=== PATIENT | female | born 1955 | race Hispanic/Latino ===

== ENCOUNTER 2022-05-21 18:53 | Emergency (ER) | payer MEDICARE, OTHER ==
[~2022-05-21] VITALS: Ht 154.9 cm; Wt 81.7 kg
[2022-05-21] MEDS ORDERED: NORVASC10 MG PO (19:07)
[2022-05-21] MEDS ORDERED: COZAAR25 MG PO (19:07)
== END 2022-05-21 20:48 | disposition home or self-care (01) ==
LOC: ED 18:53
DX: J21.0 Acute bronchiolitis due to respiratory syncytial virus (principal); Z20.822 Contact with and (suspected) exposure to COVID-19
CPT/HCPCS: 71045; 87502; 94640; 99284-25; C9803; U0003

== ENCOUNTER 2023-03-16 13:02 | Emergency (ER) | payer OTHER, MEDICARE ==
[~2023-03-16] VITALS: Ht 154.9 cm; Wt 81.9 kg
[~2023-03-16 13:02] MED LIST: COZAAR25 MG PO; NORVASC10 MG PO; ZTLIDO1 EACH TOP
[2023-03-16] MEDS ORDERED: HYDROCODON-ACE1 EA10 PO (14:15)
[2023-03-16 15:12] VITALS: BP 165/93
== END 2023-03-16 15:13 | disposition home or self-care (01) ==
LOC: ED 13:02
DX: S61.213A Laceration without foreign body of left middle finger without damage to nail, initial encounter (principal); S61.215A Laceration without foreign body of left ring finger without damage to nail, initial encounter; W23.0XXA Caught, crushed, jammed, or pinched between moving objects, initial encounter; I10 Essential (primary) hypertension; Z79.899 Other long term (current) drug therapy
CPT/HCPCS: 12002; 73130; 99283-25; A9270

== ENCOUNTER 2024-10-06 11:38 | Emergency (ER) | payer MEDICARE ==
[~2024-10-06] VITALS: Ht 154.9 cm; Wt 81.3 kg
[~2024-10-06 11:38] MED LIST changes: +HYDROCODON-ACE1 EA10 PO
[2024-10-06] MEDS ORDERED: ACYCLOVIR200 MG PO (12:46)
[2024-10-06 13:21] VITALS: BP 175/103
== END 2024-10-06 13:21 | disposition home or self-care (01) ==
LOC: ED 11:38
DX: B02.9 Zoster without complications (principal); I10 Essential (primary) hypertension; Z79.899 Other long term (current) drug therapy
CPT/HCPCS: 99282